=== PATIENT | male | born 1975 | race Two or more races ===

== ENCOUNTER 2020-10-22 15:10 | Inpatient (IN) | payer BC, OTHER ==
[~2020-10-22] VITALS: Ht 185.4 cm; Wt 129.5 kg
--- NOTE | 2020-10-22 15:57 | NUR ---
IR doc. Pelvic pain with dysuria. Symptoms similiar to dx prostatitus which lead to him being septic 5 years ago. Seen by [facility] this am was given im rocpehin Now chilled/tachycardiac PLACED ON HAND SANDER BLOOD CULTURES X2 FULL SET OF LABS INCLUDING LACTATE PROVIDER AT BEDSIDE
[2020-10-22] MEDS ORDERED: PIPERACILLIN/TAZO/PMX 4.5GM 100 ML IVPB ONE (16:00)
[2020-10-22 16:01] LABS: MEAN CORPUSCULAR HEMOGLOBIN 30.4 pg (27.5-34.5); MEAN CORPUSCULAR HGB CONC 34.5 g/dL (33.2-36.2); MEAN PLATELET VOLUME 7.8 fL (7.4-10.4); PLATELET COUNT 152 x10^3/uL (130-400); RED BLOOD COUNT 4.98 x10^6/uL (4.38-5.82); RED CELL DISTRIBUTION WIDTH 13.5 % (9.4-14.8)
--- NOTE | 2020-10-22 16:06 | NUR ---
FLACO REQUESTED FROM PHARMACY (4.5GM NOT IN OMNICERLL)
[2020-10-22 16:10] LABS: ALANINE AMINOTRANSFERASE 42 U/L (12-78); ANION GAP 8 mmol/L (5-15); CALCIUM 8.8 mg/dL (8.5-10.1); CHLORIDE 103 mmol/L (98-107)
[2020-10-22 16:12] LABS: ALKALINE PHOSPHATASE 55 U/L (45-117); BILIRUBIN,TOTAL 1.1 mg/dL (0.2-1.0); TOTAL PROTEIN 7.8 g/dL (6.4-8.2)
--- NOTE | 2020-10-22 16:17 | NUR ---
UA COLLECTED MEDICATED PER EMAR WITH IVF AND ZOSYN
--- NOTE | 2020-10-22 16:18 | NUR ---
POST VOID RESIDUAL OF 15ML
[2020-10-22] MEDS ORDERED: SODIUM CHLORIDE FLUSH 10ML SYR IVF ONE (16:30)
[2020-10-22] MEDS ORDERED: SODIUM CHLORIDE 0.9% 1,000ML IVBOLUS ONE (16:30)
[2020-10-22] MEDS ORDERED: CEFTRIAXONE PMX 2GM/50ML 50 ML IVPB ONE (16:30)
[2020-10-22] MEDS ORDERED: IBUPROFEN 600 MG TABLET ONE (16:39)
--- NOTE | 2020-10-22 16:49 | NUR ---
POC CLARIFIED WITH PROVIDED IN THE SETTING OF SIRS VS AND SLIGHTLY ELEVATED LACTATE: ERP CONSIDERING
[2020-10-22 16:56] LABS: MICROSCOPIC INDICATED
[2020-10-22] MEDS ORDERED: IBUPROFEN 600 MG TABLET PO ONE (17:00)
--- NOTE | 2020-10-22 17:07 | NUR ---
ERP REVIEWED TESTING RESULTS. TO ADMIN A TOTAL OF 2L AND ADD GENTAMYCIN NO NEED FOR 30ML/KG PER ERP
[2020-10-22 17:10] LABS: MD YES
--- NOTE | 2020-10-22 17:15 | NUR ---
GENTAMYCIN ORDERED FROM PHARMACY
[2020-10-22] MEDS ORDERED: SODIUM CHLORIDE 0.9%, 500ML IVBOLUS ONE (17:30)
[2020-10-22 17:39] LABS: BAND#(MANUAL) 1.03 x10^3/uL; BANDS%(MANUAL) 25 % (0-7); LYMPH#(MANUAL) 0.53 x10^3/uL (1-3.4); LYMPHS% (MANUAL) 13 % (22-44); METAMYELOCYTES# (MANUAL) 0.04 x10^3/uL (0-0); METAMYELOCYTES% (MANUAL) 1 % (0-1); MONOS#(MANUAL) 0.04 x10^3/uL (0.3-2.7); MONOS% (MANUAL) 1 % (2-9); SEG#(MANUAL) 2.46 x10^3/uL (1.8-6.8); SEGS% (MANUAL) 60 % (42-75)
[2020-10-22 17:41] LABS: <PLATELET ESTIMATE> ADEQUATE; <PLT MORPHOLOGY> NORMAL PLT MORPH; <RBC MORPHOLOGY> NORMAL
--- NOTE | 2020-10-22 17:53 | NUR ---
TO CT SCAN
[2020-10-22] MEDS ORDERED: LACTATED RINGERS 1,000 ML IVBOLUS ONE (18:00)
[2020-10-22] MEDS ORDERED: GENTAMICIN 120 MG in SODIUM CHLORIDE 0.9% 50 ML IV SCH (18:00)
[2020-10-22] MEDS ORDERED: OMNIPAQUE 350 MG/ML, 100ML BOTTLE ONE (18:12)
[2020-10-22] MEDS ORDERED: ACETAMINOPHEN 500 MG TABLET ONE (18:26)
[2020-10-22] MEDS ORDERED: ACETAMINOPHEN 500 MG TABLET PO ONE (18:30)
[2020-10-22] MEDS ORDERED: ONDANSETRON 2MG/ML, 2ML IVPush PRN (19:00)
[2020-10-22] MEDS ORDERED: GENTAMICIN PER PHARMACY MC PRN (19:00)
[2020-10-22] MEDS ORDERED: HYDROcodone/APAP 5/325 TABLET PO PRN (19:00)
--- NOTE | 2020-10-22 19:07 | NUR ---
REPORT RECIEVED FROM ROSALEE HAM
[2020-10-22] MEDS: SODIUM CHLORIDE 0.9% 1,000 ML IV SCH (19:15)
--- NOTE | 2020-10-22 19:43 | NUR ---
PT RESTING IN [place], AWAITING BED ON UNIT, NO NEEDS AT THIS TIME. VISITOR AT BEDSIDE
--- NOTE | 2020-10-22 20:01 | NUR ---
380 MLS OF URINE OUTPUT
--- NOTE | 2020-10-22 20:23 | NUR ---
REPORT GIVEN TO PETE HAM
[2020-10-22 20:44] VITALS: BP 91/59
[2020-10-22] MEDS ORDERED: PHARMACOKINETIC MONITORING MC PRN (21:30)
[2020-10-22] MEDS ORDERED: PHARMACOKINETIC CONSULTATION MC ONE (21:30)
[2020-10-22] MEDS: PIPERACILLIN/TAZO/PMX 3.375GM 50 ML IV SCH (21:59)
[2020-10-23] MEDS ORDERED: GENTAMICIN 160 MG in SODIUM CHLORIDE 0.9% 50 ML IV SCH (00:12)
[2020-10-23 01:18] VITALS: BP 91/55
[2020-10-23] MEDS: ACETAMINOPHEN 325 MG TABLET PO PRN ×5 (01:29→20:19)
[2020-10-23] MEDS ORDERED: GENTAMICIN 560 MG in SODIUM CHLORIDE 0.9% 100 ML IV SCH (02:00)
[2020-10-23] MEDS: PIPERACILLIN/TAZO/PMX 3.375GM 50 ML IV SCH ×4 (03:56→22:09)
[2020-10-23] MEDS: SODIUM CHLORIDE 0.9% 1,000 ML IV SCH ×2 (03:57→20:18)
[2020-10-23 06:04] LABS: BASOPHILS % (AUTO) 0 % (0-1); EOSINOPHILS % (AUTO) 0 % (1-7); LYMPHOCYTES % (AUTO) 5 % (22-44); MD NO; MEAN CORPUSCULAR HEMOGLOBIN 30.4 pg (27.5-34.5); MEAN CORPUSCULAR HGB CONC 33.8 g/dL (33.2-36.2); MEAN PLATELET VOLUME 8.3 fL (7.4-10.4); MONOCYTES % (AUTO) 7 % (2-9); NEUTROPHILS % (AUTO) 87 % (42-75); PLATELET COUNT 149 x10^3/uL (130-400); RED BLOOD COUNT 4.29 x10^6/uL (4.38-5.82); RED CELL DISTRIBUTION WIDTH 13.6 % (9.4-14.8)
[2020-10-23 06:10] LABS: ANION GAP 6 mmol/L (5-15); CHLORIDE 109 mmol/L (98-107); CREATININE 1.25 mg/dL (0.7-1.3)
[2020-10-23 06:18] VITALS: BP 107/71
[2020-10-23 07:43] VITALS: BP 116/73
[2020-10-23] MEDS: TAMSULOSIN 0.4 MG CAP.ER.24H PO SCH (08:07)
[2020-10-23] MEDS: IBUPROFEN 600 MG TABLET PO PRN ×3 (08:07→22:11)
[2020-10-23] MEDS: PHENAZOPYRIDINE 200 MG TABLET PO SCH ×3 (08:07→20:19)
[2020-10-23] MEDS ORDERED: DOCUSATE 100 MG CAPSULE PO SCH (09:00)
[2020-10-23] MEDS: HEPARIN 5,000 UNITS/ML, 1ML SQ SCH ×2 (11:39→18:13)
[2020-10-23 13:40] VITALS: BP 98/62
[2020-10-23] MEDS ORDERED: PHEN-418 PO (15:45)
[2020-10-23] MEDS ORDERED: TAMS-11 PO (15:45)
[2020-10-23] MEDS: GENTAMICIN 600 MG in SODIUM CHLORIDE 0.9% 100 ML IV SCH (20:17)
[2020-10-23] MEDS: SENNA/DOCUSATE TABLET PO SCH (20:19)
[2020-10-23 20:42] VITALS: BP 99/63
[2020-10-24] MEDS: ACETAMINOPHEN 325 MG TABLET PO PRN ×4 (01:07→20:35)
[2020-10-24 01:10] VITALS: BP 108/75
[2020-10-24] MEDS: HEPARIN 5,000 UNITS/ML, 1ML SQ SCH ×3 (03:00→20:32)
[2020-10-24] MEDS: PIPERACILLIN/TAZO/PMX 3.375GM 50 ML IV SCH ×4 (04:16→23:06)
[2020-10-24 05:07] LABS: MEAN CORPUSCULAR HEMOGLOBIN 30.6 pg (27.5-34.5); MEAN PLATELET VOLUME 8.3 fL (7.4-10.4); PLATELET COUNT 113 x10^3/uL (130-400); RED BLOOD COUNT 4.25 x10^6/uL (4.38-5.82)
[2020-10-24] MEDS: SODIUM CHLORIDE 0.9% 1,000 ML IV SCH ×2 (05:33→20:36)
[2020-10-24] MEDS: IBUPROFEN 600 MG TABLET PO PRN ×3 (05:34→22:07)
[2020-10-24 05:55] LABS: MD YES
[2020-10-24 05:56] LABS: BAND#(MANUAL) 1.61 x10^3/uL; BANDS%(MANUAL) 15 % (0-7); LYMPH#(MANUAL) 0.86 x10^3/uL (1-3.4); LYMPHS% (MANUAL) 8 % (22-44); MONOS#(MANUAL) 0.32 x10^3/uL (0.3-2.7); MONOS% (MANUAL) 3 % (2-9); SEG#(MANUAL) 7.92 x10^3/uL (1.8-6.8); SEGS% (MANUAL) 74 % (42-75)
[2020-10-24 05:57] LABS: <PLATELET ESTIMATE> DECREASED; <PLT MORPHOLOGY> NORMAL PLT MORPH; <RBC MORPHOLOGY> NORMAL
[2020-10-24 08:53] VITALS: BP 125/81
[2020-10-24] MEDS: PHENAZOPYRIDINE 200 MG TABLET PO SCH ×3 (09:27→20:35)
[2020-10-24] MEDS: TAMSULOSIN 0.4 MG CAP.ER.24H PO SCH ×2 (09:28→21:32)
[2020-10-24 13:01] VITALS: BP 128/86
[2020-10-24] MEDS: VALACYCLOVIR 500MG TABLET PO SCH (17:23)
[2020-10-24 20:29] VITALS: BP 131/80
[2020-10-24] MEDS: GENTAMICIN 600 MG in SODIUM CHLORIDE 0.9% 100 ML IV SCH (20:35)
[2020-10-24] MEDS: SENNA/DOCUSATE TABLET PO SCH (20:35)
[2020-10-25] MEDS: HEPARIN 5,000 UNITS/ML, 1ML SQ SCH ×2 (01:57→10:47)
[2020-10-25 02:09] VITALS: BP 109/71
[2020-10-25] MEDS: ACETAMINOPHEN 325 MG TABLET PO PRN ×3 (02:11→13:08)
[2020-10-25] MEDS: PIPERACILLIN/TAZO/PMX 3.375GM 50 ML IV SCH ×2 (04:41→10:43)
[2020-10-25] MEDS: IBUPROFEN 600 MG TABLET PO PRN ×2 (04:41→10:46)
[2020-10-25] MEDS: VALACYCLOVIR 500MG TABLET PO SCH (04:41)
[2020-10-25 05:53] LABS: MEAN CORPUSCULAR HEMOGLOBIN 30.8 pg (27.5-34.5); MEAN CORPUSCULAR HGB CONC 34.7 g/dL (33.2-36.2); MEAN PLATELET VOLUME 8.4 fL (7.4-10.4); PLATELET COUNT 147 x10^3/uL (130-400); RED BLOOD COUNT 4.54 x10^6/uL (4.38-5.82); RED CELL DISTRIBUTION WIDTH 13.7 % (9.4-14.8)
[2020-10-25 06:29] LABS: MD YES
[2020-10-25 06:31] LABS: <PLATELET ESTIMATE> DECREASED; <PLT MORPHOLOGY> NORMAL PLT MORPH; <RBC MORPHOLOGY> NORMAL; BAND#(MANUAL) 0.55 x10^3/uL; BANDS%(MANUAL) 8 % (0-7); EOS#(MANUAL) 0.14 x10^3/uL (0.0-0.4); EOS% (MANUAL) 2 % (1-7); LYMPH#(MANUAL) 0.48 x10^3/uL (1-3.4); LYMPHS% (MANUAL) 7 % (22-44); MONOS#(MANUAL) 0.14 x10^3/uL (0.3-2.7); MONOS% (MANUAL) 2 % (2-9); MYELOCYTES# (MANUAL) 0.07 x10^3/uL (0-0); MYELOCYTES% (MANUAL) 1 % (0-0); SEG#(MANUAL) 5.52 x10^3/uL (1.8-6.8); SEGS% (MANUAL) 80 % (42-75)
[2020-10-25 07:13] VITALS: BP 123/81
[2020-10-25] MEDS: TAMSULOSIN 0.4 MG CAP.ER.24H PO SCH (09:06)
[2020-10-25] MEDS: PHENAZOPYRIDINE 200 MG TABLET PO SCH ×2 (09:06→17:45)
[2020-10-25 12:37] VITALS: BP 125/82
[2020-10-25] MEDS ORDERED: ERTAPENEM 1 GM in SODIUM CHLORIDE 0.9% 50 ML IV SCH (13:00)
[2020-10-25 13:19] LABS: CREATININE 1.02 mg/dL (0.7-1.3)
[2020-10-25] MEDS ORDERED: TAMS-11 PO (15:53)
[2020-10-25] MEDS ORDERED: ACET325T26 PO (15:53)
[2020-10-25] MEDS ORDERED: IBUP-1222 PO (15:53)
[2020-10-25] MEDS ORDERED: SENN-211 PO (15:53)
[2020-10-25] MEDS ORDERED: SODIUM CHLORIDE 0.9% 1,000 ML IV SCH (19:00)
== END 2020-10-25 18:32 | disposition home or self-care (01) | DRG 872 ==
LOC: ED 16:42 → EDIP 18:19 → 5SO 20:42
PROVIDERS: ADMIT Internal Medicine; ATTEND Internal Medicine
PROC: 02HV33Z Insertion of Infusion Device into Superior Vena Cava, Percutaneous Approach (ICD-10-PCS; principal; 2020-10-25)
PROC: B5181ZA Fluoroscopy of Superior Vena Cava using Low Osmolar Contrast, Guidance (ICD-10-PCS; 2020-10-25)
PROC: B548ZZA Ultrasonography of Superior Vena Cava, Guidance (ICD-10-PCS; 2020-10-25)
DX: A41.9 Sepsis, unspecified organism (principal); N41.0 Acute prostatitis; D69.6 Thrombocytopenia, unspecified; Z83.3 Family history of diabetes mellitus; E66.9 Obesity, unspecified; Z68.37 Body mass index [BMI] 37.0-37.9, adult; G47.30 Sleep apnea, unspecified; K59.00 Constipation, unspecified; N40.0 Benign prostatic hyperplasia without lower urinary tract symptoms; R65.20 Severe sepsis without septic shock; B00.1 Herpesviral vesicular dermatitis
CPT/HCPCS: 36415; 36573; 74177; 80048; 80053; 80170; 81001; 82330; 82565; 83605; 85025; 87040; 87086; G0378; J1335; J2543; Q9967; C1751; J1580; J7030; J7040; J7120